=== PATIENT | male | born 1990 | race Caucasian/White ===

== ENCOUNTER → 2018-02-14 | Outpatient (CLI) | payer BC ==
--- NOTE | 2018-02-15 18:04 | MR ---
EXAMINATION TYPE: MR lumbar spine wo con DATE OF EXAM: 02/15/2018 COMPARISON: NONE HISTORY: 27-year-old male LBP, BLE radic x 7 years TECHNIQUE: Multiplanar, multisequence images of the lumbar spine were acquired. Findings: Vertebral body heights are preserved and alignment is maintained. There is facet arthropathy at L4-L5 and L5/S1. Degenerative disc disease at L4-L5 and L5-S1 with mild disc desiccation and disc bulging. Posterior a nnular fissures are present central right paracentral at L4-L5 and left paracentral at L5-S1. No suspicious bone marrow replacement. Conus medullaris is normal. From T12 through L4 levels, no spinal canal or neuroforaminal stenosis. At L4-L5, there is a right paracentral disc protrusion with annular fissure and mild facet degenerati ve change, this causes mild inferior right neural foraminal narrowing without significant spinal joleen l stenosis. At L5-S1, there is diffuse disc bulge with a left intraforaminal annular fissure which closely approa ches the traversing left S1 nerve root. Additional facet degenerative change. No significant spinal c anal or neuroforaminal stenosis. No prevertebral or paravertebral soft tissue abnormality. IMPRESSION: 1. Mild to moderate degenerative disc disease at L4-L5 and L5-S1 with corresponding facet arthropathy . 2. Right paracentral disc protrusion at L4-L5 with annular fissure. This contributes to mild inferior right neural foraminal narrowing. 3. Left intraforaminal annular fissure at L5-S1 closely approaches the traversing left S1 nerve root. 4. No significant spinal canal stenosis.
== END | disposition home or self-care (01) ==
LOC: RADMRIMAIN 10:48
PROVIDERS: ATTEND Family Medicine
DX: M99.73 Connective tissue and disc stenosis of intervertebral foramina of lumbar region (principal); M51.17 Intervertebral disc disorders with radiculopathy, lumbosacral region; M46.97 Unspecified inflammatory spondylopathy, lumbosacral region
CPT/HCPCS: 72148